=== PATIENT | male | born 1970 | race Caucasian/White ===

== ENCOUNTER 2017-03-31 13:59 | Day surgery (SDC) | payer OTHER ==
[~2017-03-31] VITALS: Ht 182.9 cm; Wt 105.9 kg
[2017-03-31] MEDS ORDERED: COLACE100 MG PO (14:38)
[2017-03-31] MEDS ORDERED: HUMULIN R100 U/ML SC (14:39)
[2017-03-31] MEDS ORDERED: HYDROCHLOROTHIA25 MG PO (14:40)
[2017-03-31] MEDS ORDERED: HYDROCODONE-APA1 TAB PO (14:40)
[2017-03-31] MEDS ORDERED: ZESTRIL40 MG PO (14:41)
[2017-03-31] MEDS ORDERED: LITHIUM CARBON300 MG PO (14:41)
[2017-03-31] MEDS ORDERED: VISINE15 ML EACH EYE (14:42)
[2017-03-31] MEDS ORDERED: LOPRESSOR25 MG PO (14:42)
[2017-03-31] MEDS ORDERED: OMEPRAZOLE20 M1 PO (14:42)
[2017-03-31 14:53] VITALS: BP 104/66; Ht 182.9 cm; Wt 105.9 kg
--- NOTE | 2017-03-31 15:12 | NUR ---
ATE BEANS AT LUNCH TODAY, STATES AROUND 10AM. ANESTHESIA NOTIFED AND SURGERY CANCELLED. PATIENT INFORMED AND DISCHARGE INSTRUCTIONS GIVEN. STATES "THEY TOLD ME NOT TO EAT AFTER MIDNIGHT BUT BY 10 O'CLOCK I WAS GETTING HUNGRY.
== END 2017-03-31 15:15 | disposition other institution (70) ==
LOC: D.OPS 13:59
DX: C18.9 Malignant neoplasm of colon, unspecified (principal); Z53.09 Procedure and treatment not carried out because of other contraindication; Z01.812 Encounter for preprocedural laboratory examination

== ENCOUNTER 2017-04-07 05:52 | Day surgery (SDC) | payer OTHER ==
[~2017-04-07] VITALS: Ht 182.9 cm; Wt 105.7 kg
[~2017-04-07 05:52] MED LIST: COLACE100 MG PO; HUMULIN R100 U/ML SC; HYDROCHLOROTHIA25 MG PO; HYDROCODONE-APA1 TAB PO; LITHIUM CARBON300 MG PO; LOPRESSOR25 MG PO; OMEPRAZOLE20 M1 PO; VISINE15 ML EACH EYE; ZESTRIL40 MG PO
[2017-04-07 06:59] VITALS: BP 126/80; Ht 182.9 cm; Wt 105.7 kg
[2017-04-07 07:31] LABS: APTT 38.2 SECONDS (22.8-39.4); INR 1.06 (0.85-1.17); PROTIME 13.7 SECONDS (11.6-15.0)
[2017-04-07 07:32] LABS: HEMATOCRIT 33.7 % (42.0-54.0); HEMOGLOBIN 11.5 g/dL (13.5-17.5); LYMPHOCYTES 26.3 % (15-50); MCH 28.8 pg (26.0-34.0); MCHC 34.1 g/dL (31.0-37.0); MCV 84.3 fL (80.0-100.0); MEAN PLATELET VOLUME 8.2 fL (7.4-10.4); PLATELET COUNT 319 10x3/uL (130-400); RDW 12.2 % (11.5-14.5); WBC 6.8 10x3/uL (4.8-10.8)
[2017-04-07 07:37] LABS: CALC OSMOLALITY 274 mosm/kg (275-300); CALCIUM 9.3 mg/dL (8.5-10.1); CARBON DIOXIDE 29.4 mmol/L (21.0-32.0); CHLORIDE - SERUM 101 mmol/L (98-107); CREATININE - SERUM 0.9 mg/dL (0.6-1.3); GLUCOSE 138 mg/dL (74-106); POTASSIUM - SERUM 4.1 mmol/L (3.5-5.1); SODIUM 137 mmol/L (136-145); UREA NITROGEN 11 mg/dL (7-18); eGFR NON AFRICAN AMERICAN > 90 mL/min (90-120)
--- NOTE | 2017-04-07 12:24 | OP ---
PATIENT NAME: EMILIANA VIDAL MEDICAL RECORD: [id number] :68 LOCATION:[facility] [place] [place]- ADMISSION DATE: SURGEON: BLAYNE CONTEH MD DATE OF OPERATION: 04/07/2017 PREOPERATIVE DIAGNOSIS: In need of a port for IV chemotherapy. POSTOPERATIVE DIAGNOSIS: In need of a port for IV chemotherapy. PROCEDURES: 1. Placement of the left infraclavicular PowerPort under fluoroscopic guidance, via a cephalic vein cutdown. 2. Immediate surgeon interpretation of fluoroscopic images. SURGEON: Blayne Conteh MD. KEYBOARDING TEACHER: None. BLOOD LOSS: Minimal. ANESTHESIA: General. COMPLICATIONS: None. The risks, possible complications and alternatives to procedure were explained to the patient. He elects to proceed. No radiologist was present for this procedure. Static fluoroscopic images were obtained and are kept in the PACS system. The surgeon's interpretation of the fluoroscopic images is within the body of this operative note. OPERATIVE COURSE: The patient was conveyed to the operating room electively on 04/07/2017. General anesthesia was induced by the anesthesia staff. The left chest and left neck were sterilely prepped and draped. A transverse incision was accomplished inferior to the left clavicle. Sharp dissection was carried down to the level of the pectoralis fascia. A pocket was created in a caudad direction. I removed some of the adipose tissue from beneath the skin to allow for easier access. I dissected in the deltopectoral groove. I identified a generous cephalic vein. Ties were placed on the cephalic vein inferiorly. Loose ties were placed medially. A small venotomy was accomplished. I used the vein pick to insert the PowerPort catheter. Under fluoroscopy it was advanced to the cavoatrial junction. The catheter was shortened. It was attached to the PowerPort. The locking device was firmly engaged. The port was placed in the port pocket. Three-point fixation was performed utilizing 3-0 Prolenes. I accessed the port. It accessed easily. It aspirated dark, nonpulsatile blood. It also flushed easily. I irrigated in the port pocket. I tied the Vicryls medially. I divided the cephalic vein between the ties. I ensured that the catheter was not kinked or twisted. Fluoroscopic images were obtained, one over the mediastinum and one over the left shoulder. There has been no radiographic evidence of complication. The subdermis was approximated with interrupted 3-0 Vicryls. The skin was approximated with a running intracuticular 4-0 Vicryl. Benzoin and Steri-Strips were applied. The patient was then extubated and conveyed to post-anesthesia care unit where he was in stable condition. OPERATIVE REPORT [id number] EMILIANA VIDAL TRANSINT:[id number] Voice Confirmation ID: [id number] DOCUMENT ID: [id number] BLAYNE CONTEH MD at 1224 CC: BLAYNE STODDARD MD, JIMMY CANNON MD and HELENA GAINES [id number] DICTATION DATE: 04/07/17 0947 SOLICITING FREIGHT AGENT: 04/07/17 11[id number] [place] [address]
--- NOTE | 2017-04-07 12:24 | HP ---
PATIENT: EMILIANA VIDAL MEDICAL RECORD: [id number] ACCOUNT: [id number] LOCATION:[facility]- : 68 ADMISSION DATE: 04/07/17 HISTORY AND PHYSICAL EXAMINATION CHIEF COMPLAINT: Colon cancer. HISTORY OF PRESENT ILLNESS: The patient has colon cancer with mets to the liver. He needs IV access for chemotherapy. The risks, possible complications and alternatives to the procedure were explained to the patient. He elects to proceed. I told the patient I would try to place on the left side, but if we were unable to, we might have place on the right side. The patient is left handed. I told him that just as any foreign material put in the human body. if this could break, it could clot off, it could become infected, it could flip. HOME MEDICATIONS: Lisinopril, hydrochlorothiazide, insulin on sliding scale. ALLERGIES: MORPHINE, WHICH CAUSES VOMITING. SOCIAL HISTORY: Former smoker, quit 5 years ago. He has a [id number] history prior to that. PAST MEDICAL AND SURGICAL HISTORY: CVA with no deficits, insulin-dependent diabetes mellitus, emergency tracheostomy secondary to dental procedure, history of bowel resection for colon cancer, history of liver metastases, hypertension. REVIEW OF SYSTEMS: Negative for coronary artery disease, thyroid problems, or renal disease. PHYSICAL EXAMINATION: GENERAL: The patient does not appear acutely ill. He does not appear chronically ill. VITAL SIGNS: Reviewed. HEAD: External ears appear normal. EYES: Extraocular movements are intact. NECK: Trachea is midline. CHEST: No intercostal retractions. PULMONARY: Nonlabored, no stridor. ABDOMEN: Nontender. IMPRESSION: Colon cancer with metastases and need of a port for IV access for chemotherapy. PLAN: Will be PowerPort placement, left versus right. TRANSINT:[id number] Voice Confirmation ID: [id number] DOCUMENT ID: [id number] HISTORY AND PHYSICAL [id number] YOUNGEMILIANA BLAYNE LUNSFORD MD at 1224 CC: BLAYNE STODDARD MD, JIMMY CANNON MD and HELENA GAINES [phone] DICTATION DATE: 04/07/17 0943 PROGRAM REVIEW DIRECTOR: 04/07/17 1012 [facility] [address] [place] [address]
--- NOTE | 2017-04-07 15:39 | NUR ---
1032--PT COMPLAINS OF PAIN, DILAUDID 2MG TABLET GIVEN PO. RADHA AYALA 1130--IV DC'D, PT UP TO DRESS AT THIS TIME. RADHA AYALA 1150--DISCHARGE INSTRUCTIONS GIVEN, PT VERBALIZES UNDERSTANDING. PT OFF UNIT WITH LONGTERM GUARDS. RADHA AYALA
== END 2017-04-07 11:50 | disposition home or self-care (01) ==
LOC: D.OPS 05:52 → D.SDCHOLD 06:00 → D.OPS 08:00
PROVIDERS: Anesthesiology
DX: C18.9 Malignant neoplasm of colon, unspecified (principal); E11.9 Type 2 diabetes mellitus without complications; K21.9 Gastro-esophageal reflux disease without esophagitis; E66.9 Obesity, unspecified; Z68.31 Body mass index [BMI] 31.0-31.9, adult; Z01.812 Encounter for preprocedural laboratory examination

== ENCOUNTER 2017-07-31 16:11 | Inpatient (IN) | payer MEDICAID ==
[~2017-07-31] VITALS: Ht 182.9 cm; Wt 108.9 kg
[2017-07-31] MEDS ORDERED: ZOFRAN8 MG PO (16:35)
[2017-07-31] MEDS ORDERED: MILK OF MAGNESI30 ML PO (16:35)
[2017-07-31] MEDS ORDERED: CYMBALTA20 MG PO (16:36)
[2017-07-31] MEDS ORDERED: GLUCOTROL 5 MG T5 MG PO (16:36)
[2017-07-31 17:19] LABS: BASOPHILS 0.1 % (0-2); EOSINOPHILS 1.4 % (0-7); HEMOGLOBIN 12.3 g/dL (13.5-17.5); IMMATURE GRANULOCYTES 0.2 % (0-5); LYMPHOCYTES 22.8 % (15-50); MCH 29.5 pg (26.0-34.0); MCHC 33.2 g/dL (31.0-37.0); MCV 88.7 fL (80.0-100.0); MEAN PLATELET VOLUME 8.7 fL (7.4-10.4); NEUTROPHILS 66.5 % (40-80); PLATELET COUNT 355 10x3/uL (130-400); RBC 4.17 10x6/uL (4.20-6.10); WBC 9.1 10x3/uL (4.8-10.8)
[2017-07-31 17:27] LABS: APTT 35.6 SECONDS (22.8-39.4); INR 1.06 (0.85-1.17); PROTIME 13.4 SECONDS (11.6-15.0)
[2017-07-31 17:32] LABS: ALBUMIN 3.2 g/dL (3.4-5.0); ALKALINE PHOSPHATASE 120 U/L (46-116); ALT (SGPT) 24 U/L (10-68); BILIRUBIN - TOTAL 0.22 mg/dL (0.2-1.3); CALC OSMOLALITY 267 mosm/kg (275-300); CALCIUM 9.8 mg/dL (8.5-10.1); CARBON DIOXIDE 30.8 mmol/L (21.0-32.0); CHLORIDE - SERUM 99 mmol/L (98-107); CREATININE - SERUM 0.8 mg/dL (0.6-1.3); GLUCOSE 120 mg/dL (74-106); POTASSIUM - SERUM 4.5 mmol/L (3.5-5.1); PROTEIN - SERUM 8.2 g/dL (6.4-8.2); SODIUM 134 mmol/L (136-145); UREA NITROGEN 11 mg/dL (7-18); eGFR NON AFRICAN AMERICAN > 90 mL/min (90-120)
[2017-07-31 19:04] VITALS: BP 168/101; BMI 32.6
[2017-07-31 23:00] VITALS: BP 155/96
[2017-08-01 05:00] VITALS: BP 129/76
[2017-08-01 08:05] VITALS: BP 153/99
[2017-08-01 11:54] VITALS: BP 123/77
[2017-08-01 12:36] VITALS: Ht 182.9 cm; Wt 108.9 kg
[2017-08-01 15:58] VITALS: BP 102/49
[2017-08-02 04:00] VITALS: BP 126/89
[2017-08-02 09:33] VITALS: BP 129/61
[2017-08-02 13:29] VITALS: BP 115/76
[2017-08-02 16:30] VITALS: BP 120/74
[2017-08-02 20:00] VITALS: BP 103/63
[2017-08-03 04:00] VITALS: BP 116/66
[2017-08-03 09:38] VITALS: BP 119/50
[2017-08-03 13:12] VITALS: BP 119/45
[2017-08-03 20:36] VITALS: BP 122/68
[2017-08-03 23:43] VITALS: BP 102/60
[2017-08-04 04:15] VITALS: BP 106/64
[2017-08-04 08:49] VITALS: BP 100/54
[2017-08-04 12:56] VITALS: BP 134/66
[2017-08-04 16:15] VITALS: BP 111/62
[2017-08-04 19:56] VITALS: BP 131/57
== END 2017-08-04 23:49 | disposition short-term general hospital (02) | DRG 543 ==
LOC: D.MS 16:11
PROVIDERS: ADMIT Legal Medicine
DX: C79.51 Secondary malignant neoplasm of bone (principal); C18.9 Malignant neoplasm of colon, unspecified; C78.7 Secondary malignant neoplasm of liver and intrahepatic bile duct; E11.9 Type 2 diabetes mellitus without complications; Z79.4 Long term (current) use of insulin; I10 Essential (primary) hypertension; F43.10 Post-traumatic stress disorder, unspecified